=== PATIENT | female | born 1985 | race Caucasian/White ===

== ENCOUNTER 2016-12-22 15:32 | Emergency (ER) | payer MEDICAID ==
[~2016-12-22] VITALS: Wt 80.0 kg
[~2016-12-22 15:32] MED LIST: DIPH25CA6 PO; FERR325C PO; PREN1TAB49 PO
[2016-12-22] MEDS ORDERED: PSEU60TA2 PO (16:50)
--- NOTE | 2016-12-22 17:05 | ERD ---
ER Documentation Chief Complaint Date/Time DATE: 12/22/16 TIME: 17:00 Chief Complaint nasal congestion HPI 1-year-old female patient with a past medical history of hyperlipidemia presents to the ED complaining of nasal congestion that started intermittently for 1 week. Patient has been taking Flonase. Reports that it has not been working. Denies any chest pain, shortness of breath, wheezing, fever, chills, abdominal pain, nausea, vomiting, diarrhea. Patient also has a sick contact, her son with similar symptoms. ROS All systems reviewed and are negative except as per history of present illness. Medications Home Meds Active Scripts Pseudoephedrine Hcl* (Pseudoephedrine Hcl*) 60 Mg Tablet, 60 MG PO Q6 Y for CONGESTION, #14 TAB Prov:TAINA GARCIA PA-C 12/22/16 Reported Medications Ferrous Sulfate (Iron) 325 Mg Capsr, 325 MG PO 11/12/13 Diphenhydramine Hcl (Benadryl) 25 Mg Cap, 25 MG PO Q6 Y for ALLERGIC REACTION, CAP 07/27/13 Vits W-Ca,Fe,Fa(<1MG) () 1 Tab Tablet, 1 TAB PO DAILY 04/04/12 Allergies Allergies: Coded Allergies: No Known Allergies (Verified Allergy, Unknown, 12/22/16) PMhx/Soc History of Surgery: No (CSECTION) Anesthesia Reaction: No Hx Neurological Disorder: No Hx Respiratory Disorders: No Hx Cardiac Disorders: No Hx Psychiatric Problems: No Hx Miscellaneous Medical Probl: No Hx Alcohol Use: No Hx Substance Use: No Hx Tobacco Use: No Smoking Status: Never smoker Physical Exam Vitals Vital Signs Date Time Temp Pulse Resp B/P Pulse Ox O2 Delivery O2 Flow Rate FiO2 12/22/16 15:37 98.1 89 18 120/76 99 Physical Exam Const: [id number], well-nourished. In no acute distress. Head: Atraumatic, normocephalic Eyes: Normal Conjunctiva without injection. No purulent discharge. PERRL. EOMI ENT: Normal external ear. Ear canal without erythema. Tympanic membrane pearly mejia without effusion or bulging. Nasal canal clear with normal turbinates. Moist oropharynx without tonsillar exudates. Non-erythematous pharynx. Uvula midline. No drooling. No trismus. Neck: Full range of motion. No meningismus. No cervical lymphadenopathy. Resp: Clear to auscultation bilaterally. No wheezing, rhonchi, rales, or crackles. No accessory muscle use. No retractions. Cardio: Regular rate and rhythm. No murmurs, rubs or gallops. Abd: Soft, non tender, non distended. Normal bowel sounds. No palpable masses. No rebound tenderness. No guarding. Skin: No petechiae or rashes Back: No midline tenderness. No CVA tenderness. Ext: No cyanosis, or edema. Neur: Awake and alert. Psych: Normal Mood and Affect Procedures/MDM 31-year-old female patient with a past medical history of hyperlipidemia presents to the ED complaining of nasal congestion that started intermittently for 1 week. Patient is afebrile and nontoxic-appearing. Patient has normal vital signs. Patient is appropriate for outpatient management for her nasal congestion. Patient's physical exam include lungs which were clear to auscultation and a normal pulse oximetry. There is a low suspicion for pneumonia , pneumothorax, mononucleosis, pulmonary embolism, epiglottitis, otitis media, otitis externa, viral/strep pharyngitis, sinusitis, peritonsillar abscess, mastoiditis, retropharyngeal abscess, meningitis, sepsis, acute abdomen or other emergent conditions. Discharge medications: Pseudoephedrine Patient was instructed to return to the ED for any new or worsening symptoms. They should otherwise follow up with the primary care provider within 1-2 days. The patient's questions were answered at the time of discharge. Patient understood and agreed with discharge management. Departure Diagnosis: Primary Impression: Nasal congestion Condition: Stable Patient Instructions: Nasal Congestion (/Toddler) [facility] Usted se hinds hecho un examen mdico de control que le indica que no est en saul condicin que requiera tratamiento urgente en el Departamento de Emergencia. Un estudio ms profundo y el tratamiento de calzada condicin pueden esperar sin ningn riesgo hasta que usted sea atendida/o en el consultorio de calzada mdico o saul cl jerman. Es responsabilidad suya arreglar saul juana para el seguimiento del [place]. MANEJO DE CONDICIONES NO URGENTES EN EL FUTURO 1) Si usted tiene un mdico de atencin primaria: Usted debera llamar a calzada mdico de atencin primaria antes de venir al departamento de emergencia. Despus de las horas de consultorio, calzada doctor o calzada asociado/a est disponible por telfono. El mdico o enfermero de heather en el servicio telefnico puede asesorarle por [facility] medio para atender el problema, o [place] contrario se puede programar saul juana. 2) Si usted no tiene un mdico de atencin primaria: Llame al mdico o clnica de referencia que aparece abajo jacob las horas de consultorio para hacer saul juana para que le vean. CLINICAS: [facility] [phone] [facility] [phone] [facility] [phone] [facility]. [facility] [phone] [facility] [facility] [place] [phone] [facility]. [phone] [address] [facility]. [facility] () Usted se hinds hecho un examen mdico de control que le indica que no est en saul condicin que requiera tratamiento urgente en el Departamento de Emergencia. Un estudio ms profundo y el tratamiento de calzada condicin pueden esperar sin ningn riesgo hasta que usted sea atendida/o en el consultorio de calzada mdico o saul cl jerman. Es responsabilidad suya arreglar saul juana para el seguimiento del [place]. MANEJO DE CONDICIONES NO URGENTES EN EL FUTURO 1) Si usted tiene un mdico de atencin primaria: Usted debera llamar a calzada mdico de atencin primaria antes de venir al departamento de emergencia. Despus de las horas de consultorio, calzada doctor o calzada asociado/a est disponible por telfono. El mdico o enfermero de heather en el servicio telefnico puede asesorarle por [facility] medio para atender el problema, o [place] contrario se puede programar saul juana. 2) Si usted no tiene un mdico de atencin primaria: Llame al mdico o condado institucions de referencia que aparece abajo jacob las horas de consultorio para hacer saul juana para que le vean. SI USTED NO PUEDE PAGAR PARA EDUARDO UN MEDICO puede ir a: [facility] [address] [place] [address] [facility] [address] [place] [address] [facility] [address] [place] [address] [facility] [address] [place], [place] [id number] [facility] Additional Instructions: Llame al doctor MAANA y paolo saul JUANA PARA DENTRO DE 2-3 MENDOZA.Dgale a la secretaria que nosotros le instruimos hacer esta juana.Avise o llame si calzada condicin se empeora antes de la juana. Regresa aqui si peor o no mejor. TAINA GARCIA PA-C Dec 22, 2016 17:05 TAINA GARCIA PA-C Dec 22, 2016 17:05
== END 2016-12-22 17:13 | disposition home or self-care (01) ==
LOC: FTE 15:32
DX: R09.81 Nasal congestion (principal)
CPT/HCPCS: 99283

== ENCOUNTER 2018-07-15 08:32 | Emergency (ER) | payer MEDICAID ==
[~2018-07-15] VITALS: Ht 160 cm; Wt 76.0 kg
[~2018-07-15 08:32] MED LIST changes: +PSEU60TA2 PO
[2018-07-15 08:44] VITALS: BP 161/77; PULSE 71; RESP 18; Ht 160 cm; Wt 76.0 kg
--- NOTE | 2018-07-15 09:21 | ERD ---
ER Documentation Chief Complaint Chief Complaint pt has cold symptoms x 2 days , 7 weeks HPI 33-year-old female presenting with cough and cold x2 days. Patient states she has had nasal congestion and has occult he sleeping secondary to congestion. Has no fevers. Has not taken medication is . Denies other medical problems. NKDA. Surgical history denies. Social history denies ROS All systems reviewed and are negative except as per history of present illness. Medications Home Meds Active Scripts Pseudoephedrine Hcl* (Pseudoephedrine Hcl*) 60 Mg Tablet, 60 MG PO Q6 PRN for CONGESTION, #14 TAB Prov:TAINA GARCIA PA-C 12/22/16 Reported Medications Ferrous Sulfate (Iron) 325 Mg Capsr, 325 MG PO 11/12/13 Diphenhydramine Hcl (Benadryl) 25 Mg Cap, 25 MG PO Q6 PRN for ALLERGIC REACTION, CAP 07/27/13 Vits W-Ca,Fe,Fa(<1MG) () 1 Tab Tablet, 1 TAB PO DAILY 04/04/12 Allergies Allergies: Coded Allergies: No Known Allergies (Verified Allergy, Unknown, 12/22/16) PMhx/Soc History of Surgery: No (CSECTION) Anesthesia Reaction: No Hx Neurological Disorder: No Hx Respiratory Disorders: No Hx Cardiac Disorders: No Hx Psychiatric Problems: No Hx Miscellaneous Medical Probl: No Hx Alcohol Use: No Hx Substance Use: No Hx Tobacco Use: No Smoking Status: Never smoker FmHx Family History: No diabetes, No coronary disease, No other Physical Exam Vitals Vital Signs Date Temp Pulse Resp B/P (MAP) Pulse Ox O2 O2 Flow FiO2 Time Delivery Rate 07/15/18 98.6 71 18 161/77 100 08:44 (105) Physical Exam GENERAL: The patient is well-appearing, well-nourished, in no acute distress HEENT: Atraumatic. Conjunctivae are pink. Pupils equal, round, and reactive to light. There is no scleral icterus. Tympanic membranes clear bilaterally. Oropharynx clear. Clear congestion noted bilaterally to sinuses. NECK: C-spine is soft and supple. There is no meningismus. There is no cervical lymphadenopathy. CHEST: Clear to auscultation bilaterally. There are no rales, wheezes or rhonchi. HEART: Regular rate and rhythm. No murmurs, clicks, rubs or gallops. Procedures/MDM MDM: 33-year-old female presenting with cough and congestion. I have low suspicion for bacterial sinusitis and I do not feel antibiotics are indicated. Patient is unable to take medications due to . She is recommended to do nasal rinses. Patient likely has viral syndrome. Is followed up with primary care within 1 to 2 days for close evaluation. All questions answered at discharge Departure Diagnosis: Primary Impression: Common cold Condition: Stable Patient Instructions: Adult Self-Care for Colds Referrals: [facility] YOU HAVE RECEIVED A MEDICAL SCREENING EXAM AND THE RESULTS INDICATE THAT YOU DO NOT HAVE A CONDITION THAT REQUIRES URGENT TREATMENT IN THE EMERGENCY DEPARTMENT. FURTHER EVALUATION AND TREATMENT OF YOUR CONDITION CAN WAIT UNTIL YOU ARE SEEN IN YOUR DOCTORS OFFICE WITHIN THE NEXT 1-2 DAYS. IT IS YOUR RESPONSIBILITY TO MAKE AN APPOINTMENT FOR FOLOW-UP CARE. IF YOU HAVE A PRIMARY DOCTOR --you should call your primary doctor and schedule an appointment IF YOU DO NOT HAVE A PRIMARY DOCTOR YOU CAN CALL OUR PHYSICIAN REFERRAL HOTLINE AT IF YOU CAN NOT AFFORD TO SEE A PHYSICIAN YOU CAN CHOSE FROM THE FOLLOWING [facility] [address] [facility] [facility] [address] [facility] [facility] [address] [facility] [facility] [address] [facility]. [facility] [address] [facility]. [facility]. [address] Additional Instructions: FOLLOW UP WITH YOUR PRIMARY CARE PHYSICIAN TOMORROW.Return to this facility if you are not improving as expected. ALYSA HESS PA-C Jul 15, 2018 09:21
== END 2018-07-15 09:28 | disposition home or self-care (01) ==
LOC: FTE 08:32
DX: J00 Acute nasopharyngitis [common cold] (principal)
CPT/HCPCS: 99282

== ENCOUNTER 2018-12-11 12:17 | Emergency (ER) | payer MEDICAID ==
[~2018-12-11] VITALS: Ht 160 cm; Wt 79.1 kg
[~2018-12-11 12:17] MED LIST changes: +DIPH25CA46 PO; -DIPH25CA6 PO; +NIFE30TA2 PO; -PSEU60TA2 PO; +PSEU60TA81 PO
[2018-12-11 12:37] VITALS: Ht 160 cm; Wt 79.1 kg
[2018-12-11 14:22] VITALS: BP 137/85; PULSE 56; RESP 18
== END 2018-12-11 15:40 | disposition left against medical advice (07) ==
LOC: FTE 12:17
DX: O26.899 Other specified pregnancy related conditions, unspecified trimester (principal); R07.81 Pleurodynia; Z3A.00 Weeks of gestation of pregnancy not specified
CPT/HCPCS: 81025; Z7502; 99282